=== PATIENT | female | born 1995 | race Hispanic/Latino ===

== ENCOUNTER 2020-05-15 19:20 | Day surgery (SDC) | payer OTHER, MEDICAID ==
[2020-05-15 19:40] VITALS: BMI 38.7
[2020-05-15] MEDS ORDERED: hydrALAZINE 20 MG/ML VIAL SLOW IVP PRN (20:06)
[2020-05-15 20:30] LABS: Amnisure Test No Membranes Rupture (No Rupture)
[2020-05-19 20:28] LABS: Chlamydia by PCR Not Detected (NotDetected); GC by PCR Not Detected (NotDetected)
== END 2020-05-15 21:00 | disposition home or self-care (01) ==
LOC: CSHLD/OP 19:20
PROVIDERS: ATTEND Obstetrics & Gynecology
DX: O36.8130 Decreased fetal movements, third trimester, not applicable or unspecified (principal); O99.891 Other specified diseases and conditions complicating pregnancy; N89.8 Other specified noninflammatory disorders of vagina; Z3A.33 33 weeks gestation of pregnancy
CPT/HCPCS: 84112; 87480; 87491; 87510; 87591; 87660; 99285

== ENCOUNTER 2020-06-06 11:03 | Day surgery (SDC) | payer OTHER, MEDICAID ==
[2020-06-06 13:26] VITALS: BMI 39.1
[2020-06-06] MEDS ORDERED: hydrALAZINE 20 MG/ML VIAL SLOW IVP PRN (13:30)
== END 2020-06-06 14:00 | disposition home health service (06) ==
LOC: CSHLD/OP 11:03
PROVIDERS: ATTEND Obstetrics & Gynecology
DX: O47.03 False labor before 37 completed weeks of gestation, third trimester (principal); O09.213 Supervision of pregnancy with history of pre-term labor, third trimester; Z3A.36 36 weeks gestation of pregnancy
CPT/HCPCS: 99282

== ENCOUNTER 2020-06-10 03:55 | Inpatient (IN) | payer MEDICAID, OTHER ==
[2020-06-10 04:16] VITALS: BMI 41.0
[2020-06-10] MEDS ORDERED: hydrALAZINE 20 MG/ML VIAL SLOW IVP PRN ×3 (04:30→12:41)
[2020-06-10] MEDS ORDERED: Butorphanol Tartrate 1 MG/ML VIAL IM PRN (04:37)
[2020-06-10] MEDS ORDERED: Ibuprofen 800 MG TAB PO PRN (08:55)
[2020-06-10] MEDS ORDERED: Docusate 100 MG CAP PO PRN (08:55)
[2020-06-10] MEDS ORDERED: Promethazine HCl 25 MG/ML VIAL IM PRN ×2 (08:55→12:57)
[2020-06-10] MEDS ORDERED: Lidocaine 1% (PF) 30 ML VIAL SC PRN (08:55)
[2020-06-10] MEDS ORDERED: Butorphanol Tartrate 1 MG/ML VIAL SLOW IVP PRN (08:55)
[2020-06-10] MEDS ORDERED: Acetaminophen 500 MG TAB PO PRN (08:55)
[2020-06-10] MEDS ORDERED: Misoprostol 200 MCG TAB PR PRN (08:55)
[2020-06-10] MEDS ORDERED: HYDROcodone/Acetaminophen 5/325 mg Tablet PO PRN ×2 (08:55)
[2020-06-10] MEDS ORDERED: Zolpidem Tartrate 5 MG TAB PO PRN ×2 (08:55→12:41)
[2020-06-10] MEDS ORDERED: Ondansetron PF 4 MG/2 ML Vial IVP PRN ×3 (08:55→12:57)
[2020-06-10] MEDS ORDERED: Fentanyl 4 mcg/Bup 0.1% Cadd 100 ML ONE (09:13)
[2020-06-10] MEDS ORDERED: NS w/ Oxytocin 30 units 500 ML IVPB PRN (09:22)
[2020-06-10 09:34] LABS: Hemoglobin 12.9 g/dL (12.0-15.5); Mean Corpuscular HGB CONC 33.9 g/dL (32.0-36.0); Mean Corpuscular Hemoglobin 29.7 pg (27.0-33.0); Mean Corpuscular Volume 87.4 fl (81.6-98.3); Mean Platelet Volume 9.9 fl (7.4-10.4); Platelet Count 361 10x3/uL (150-450); RBC Distribution Width 14.4 % (11.5-14.5); Red Blood Cell (RBC) Count 4.35 10x6/uL (3.90-5.03); White Blood Cell (WBC) Count 22.5 10x3/uL (3.5-10.5)
[2020-06-10] MEDS: Lactated Ringer's 1,000 ML IV SCH ×2 (09:45→10:40)
[2020-06-10 10:48] LABS: Hep B Surf Ag Non-Reactive S/CO (NonReactive)
[2020-06-10 10:49] LABS: Syphilis Antibody Nonreactive (Nonreactive); Syphilis Antibody Index 0.03 S/CO (<1.00 Non-Reactive)
[2020-06-10 11:24] LABS: HBSAg Index 0.19 S/CO (0-0.99)
[2020-06-10] MEDS ORDERED: Penicillin G Potassium 5 MILL.UNITS in Sodium Chloride 0.9% 100 ML IVPB SCH (11:45)
[2020-06-10] MEDS ORDERED: Preparation H Ointment 28 GM TUBE PR PRN (12:41)
[2020-06-10] MEDS ORDERED: Bisacodyl 10 MG SUPP PR PRN (12:41)
[2020-06-10] MEDS ORDERED: Acetaminophen/Codeine 30-300mg Tablet PO PRN ×2 (12:41)
[2020-06-10] MEDS ORDERED: diphenhydrAMINE 25 MG CAP PO PRN (12:41)
[2020-06-10] MEDS ORDERED: Milk Of Magnesia 30 ML UDCUP PO PRN (12:41)
[2020-06-10] MEDS ORDERED: Misoprostol 200 MCG TAB VAG PRN (12:41)
[2020-06-10] MEDS ORDERED: Lanolin Ointment 7 GM TUBE TOP PRN (12:41)
[2020-06-10] MEDS ORDERED: Adacel (T-DAP) 0.5 ML SYRINGE IM ONE (12:41)
[2020-06-10] MEDS ORDERED: diphenhydrAMINE 50 MG/ML VIAL IVP PRN (12:57)
[2020-06-10] MEDS ORDERED: Naloxone HCl 0.4 mg/ml Vial IVP PRN ×2 (12:57)
[2020-06-10] MEDS ORDERED: Lactated Ringer's 500 ML IV PRN (12:57)
[2020-06-10] MEDS ORDERED: Communication Order-Pharmacy FS SCH (13:00)
[2020-06-10] MEDS ORDERED: NS w/ Oxytocin 30 units 500 ML IV SCH (13:00)
[2020-06-10] MEDS ORDERED: Fentanyl 4 mcg/Bupivacaine 0.1% Cassette 100 ML EPIDURAL SCH (13:00)
[2020-06-10] MEDS ORDERED: ePHEDrine Sulfate 50 MG/10 ML VIAL SLOW IVP PRN (13:14)
[2020-06-10] MEDS: Ibuprofen 800 MG TAB PO SCH ×2 (15:54→21:47)
[2020-06-10] MEDS ORDERED: Penicillin G 2.5 MILL.units 50 ML IVPB SCH (16:00)
[2020-06-10] MEDS: Ferrous Sulfate 325 MG TAB PO SCH (16:32)
[2020-06-10] MEDS ORDERED: Bupivacaine 0.25% HCL 30 ML VIAL ONE (19:16)
[2020-06-10] MEDS ORDERED: Lidocaine 2% MPF 10 ML AMP (For Epidural Use) ONE (19:16)
[2020-06-10] MEDS: Docusate Calcium (SURFAK) 240 MG CAP PO SCH (21:47)
[2020-06-10 22:42] LABS: SARS-CoV-2 PCR by NAA DETECTED (NotDetected)
[2020-06-11] MEDS: Ibuprofen 800 MG TAB PO SCH ×3 (05:40→22:15)
[2020-06-11 07:24] LABS: Hemoglobin 11.5 g/dL (12.0-15.5); Mean Corpuscular Hemoglobin 29.9 pg (27.0-33.0); Mean Corpuscular Volume 90.6 fl (81.6-98.3); Mean Platelet Volume 9.6 fl (7.4-10.4); Platelet Count 295 10x3/uL (150-450); RBC Distribution Width 15.2 % (11.5-14.5); Red Blood Cell (RBC) Count 3.85 10x6/uL (3.90-5.03); White Blood Cell (WBC) Count 16.8 10x3/uL (3.5-10.5)
[2020-06-11] MEDS: Ferrous Sulfate 325 MG TAB PO SCH ×2 (07:31→14:36)
[2020-06-11] MEDS: Prenatal Vitamin 1 TAB PO SCH (07:59)
[2020-06-11] MEDS: Docusate Calcium (SURFAK) 240 MG CAP PO SCH ×2 (07:59→22:15)
[2020-06-11] MEDS: Acetaminophen 325 MG TAB PO PRN (16:15)
[2020-06-12] MEDS: Acetaminophen 325 MG TAB PO PRN (01:14)
[2020-06-12] MEDS: Ibuprofen 800 MG TAB PO SCH ×2 (05:31→14:00)
[2020-06-12] MEDS ORDERED: HYDROcodone/Acetaminophen 5/325 mg Tablet PO PRN ×2 (06:33)
[2020-06-12] MEDS: Ferrous Sulfate 325 MG TAB PO SCH (07:00)
[2020-06-12] MEDS: Prenatal Vitamin 1 TAB PO SCH (07:48)
[2020-06-12] MEDS: Docusate Calcium (SURFAK) 240 MG CAP PO SCH (07:48)
[2020-06-12 10:06] VITALS: BP 113/72; TEMP 97.9
== END 2020-06-12 17:27 | disposition home or self-care (01) | DRG 805 ==
LOC: CSHLD/OP 03:55 → CSHLD 10:00 → CSHPP 15:36 → CSHANTE 22:48
PROVIDERS: ADMIT Obstetrics & Gynecology; ATTEND Obstetrics & Gynecology
PROC: 10E0XZZ Delivery of Products of Conception, External Approach (ICD-10-PCS; principal; 2020-06-10)
PROC: 0UQMXZZ Repair Vulva, External Approach (ICD-10-PCS; 2020-06-10)
PROC: 10907ZC Drainage of Amniotic Fluid, Therapeutic from Products of Conception, Via Natural or Artificial Opening (ICD-10-PCS; 2020-06-10)
PROC: 8E0ZXY6 Isolation (ICD-10-PCS; 2020-06-10)
DX: O98.52 Other viral diseases complicating childbirth (principal); U07.1 COVID-19; Z37.0 Single live birth; Z3A.37 37 weeks gestation of pregnancy; O71.82 Other specified trauma to perineum and vulva
CPT/HCPCS: 36415; 51702; 85027; 86780; 86850; 86900; 86901; 87340; 87635; 99285; J0595; J2001; J2540; J2590; J3490; S0020; U0003; U0005

== ENCOUNTER 2022-01-24 02:02 | Emergency (ER) | payer OTHER ==
[2022-01-24] MEDS ORDERED: Ketorolac Tromethamine 30 MG/ML VIAL ONE (02:56)
[2022-01-24] MEDS ORDERED: Ondansetron PF 4 MG/2 ML Vial ONE (02:56)
[2022-01-24 03:19] LABS: #Eosinphils 0.1 10x3/uL (0.0-0.5); #Monocytes 0.5 10x3/uL (0.0-1.1); #Neutrophils 11.4 10x3/uL (1.5-8.4); %Basophils 0.3 % (0.0-2.0); %Eosinophils 0.9 % (0.0-6.0); %Lymphocytes 14.2 % (18.0-47.0); %Monocytes 3.6 % (0.0-10.0); %Neutrophils 80.6 % (40.0-75.0); Hemoglobin 13.5 g/dL (12.0-15.5); Mean Corpuscular HGB CONC 34.7 g/dL (32.0-36.0); Mean Corpuscular Hemoglobin 31.2 pg (27.0-33.0); Mean Corpuscular Volume 89.8 fl (81.6-98.3); Mean Platelet Volume 9.5 fl (7.4-10.4); Platelet Count 447 10x3/uL (150-450); RBC Distribution Width 13.3 % (11.5-14.5); Red Blood Cell (RBC) Count 4.33 10x6/uL (3.90-5.03); White Blood Cell (WBC) Count 14.1 10x3/uL (3.5-10.5)
[2022-01-24 03:25] LABS: BHCG - Serum Negative (NEGATIVE); Pregs Control Background? CLEAR/WHITE (CLR/WHITE); Pregs Control Bar Appear? YES (CONTROL BAR)
[2022-01-24 03:32] LABS: ALT (SGPT) 24 U/L (8-55); AST (SGOT) 23 U/L (5-34); Albumin 4.7 g/dL (3.5-5.0); Alkaline Phosphatase 78 U/L (40-110); Anion Gap 16 mmol/L (10-20); BUN (Urea Nitrogen) 9 mg/dL (7.0-18.7); Bilirubin, Total 0.8 mg/dL (0.2-1.2); Calc. Creatinine Clearance 0 mL/min (70-130); Calcium 9.6 mg/dL (7.8-10.44); Carbon Dioxide 23 mmol/L (22-29); Chloride 103 mmol/L (98-107); Estimated GFR 117; Globulin 2.6 g/dL (2.4-3.5); Glucose 120 mg/dL (70-105); Lipase 195 U/L (8-78); Potassium 3.8 mmol/L (3.5-5.1); Protein, Total 7.3 g/dL (6.0-8.3); Sodium 138 mmol/L (136-145)
[2022-01-24] MEDS ORDERED: Morphine 4 MG/ML VIAL ONE (04:22)
[2022-01-24 05:59] LABS: Bilirubin Neg (Negative); Blood, Urine 10 (Negative); Clarity Clear (Clear); Glucose, Urine (Dipstick) Normal (Negative); Ketone, Urine 50 mg/dL (Negative); Leukocyte 100 (Negative); Nitrite Negative (Negative); Protein, Urine (Dipstick) Negative (Neg-Trace); Urobilinogen Normal mg/dL (Less than 2)
[2022-01-24 06:19] LABS: Bacteria/HPF None Seen HPF (None Seen); RBC/HPF 0-3 HPF (0-3); Squamous Epithelial 0-3 HPF (0-3); WBC/HPF 0-3 HPF (0-3)
[2022-01-24] MEDS ORDERED: Iopamidol 370 76% 100 ML VIAL ONE (13:46)
== END 2022-01-24 07:39 | disposition home or self-care (01) ==
LOC: CSHERS 02:02
DX: R10.11 Right upper quadrant pain (principal)
CPT/HCPCS: 71045; 74177; 76705; 80053; 81003; 81015; 83690; 84484; 84703; 85025; 93005; 96361; 96374; 96375; J1885; J2270; J2405; Q9967